=== PATIENT | male | born 1970 | race Caucasian/White ===

== ENCOUNTER 2019-11-03 11:33 | Outpatient (CLI) | payer MEDICAID, SELFPAY ==
--- NOTE | 2019-11-03 11:49 | CT_ITS ---
WS: [id number] CT ABDOMEN PELVIS TECHNIQUE: Contrast-enhanced CT of the abdomen and pelvis with coronal and sagittal reformatted image s. CLINICAL INFORMATION: LEFT GROIN PAIN COMPARISON: None. DLP: 994.[address] scans at [facility] use at least one of these dose optimization techniques: automat ed exposure control; mA and/or kV adjustment per patient size (includes targeted exams where dose is matched to clinical indication); or iterative reconstruction. FINDINGS: Liver is normal. Normal portal vein and splenic vein. Cholecystectomy clips. Adrenal glands are sarah l. Normal spleen. Normal gastroesophageal junction. Slight atelectasis or fibrosis in the lingula. Bi basilar atelectasis. Adrenal glands are normal. Normal renal parenchymal enhancement. Small left renal cyst measuring 16 m m. No hydronephrosis. Normal caliber abdominal aorta. Fat-containing umbilical hernia. No periaortic or inguinal lymphadenopathy. No inguinal hernia. Normal sigmoid colon. Scattered stool in the sigmoid colon. No evidence of high-grade small or large bowel obstruction. CT/CT abdomen pelvis w con* [id number] IMPRESSION: 1. Prior cholecystectomy. 2. Normal caliber abdominal aorta. 3. Tiny fat-containing umbilical hernia. No inguinal hernia. 4. Normal sigmoid colon. Mild fecal retention. 5. No hydronephrosis. 16 mm incidental left renal cyst. 6. No acute abdominal or pelvic findings.
[2019-11-03] MEDS: iohexol 300 mg/mL 50 mL Btl PO (13:08)
[2019-11-03] MEDS: iohexol 300 mg/mL 100 mL Btl IV (13:24)
== END 2019-11-03 11:34 | disposition home or self-care (01) ==
LOC: CT 11:36
PROVIDERS: Family Provider Nurse Practitioner Family; PCP Nurse Practitioner Family; Visit Provider Surgery
DX: N28.1 Cyst of kidney, acquired (principal); K42.9 Umbilical hernia without obstruction or gangrene; R10.30 Lower abdominal pain, unspecified; Z90.49 Acquired absence of other specified parts of digestive tract
CPT/HCPCS: 74177; Q9967

== ENCOUNTER → 2019-11-17 07:47 | Day surgery (SDC) | payer MEDICAID, SELFPAY ==
[2019-11-14 14:14] VITALS: BMI 22.6
[2019-11-17] MEDS: diphenhydrAMINE 50 mg Capsule PO (08:14)
[2019-11-17 08:15] VITALS: BP 105/80; PULSE 99; RESP 16; TEMP 36.9; O2SAT 96
[2019-11-17 08:26] LABS: Basophils # 0.1 10^3/uL (0.0-0.1); Basophils % 0.3 %; Eosinophils # 0.4 10^3/uL (0.0-0.8); Hematocrit 50.6 % (42.0-52.0); Hemoglobin 16.8 g/dL (11.7-16.6); Lymphocytes # 2.7 10^3/uL (0.8-4.8); Lymphocytes % 15.5 %; Mean Corpuscular HGB Conc 33.2 g/dL (30.0-36.0); Mean Corpuscular Hemoglobin 30.7 pg (28.0-34.0); Mean Corpuscular Volume 92.3 fL (80-94); Mean Platelet Volume 9.2 fL (7.4-10.4); Monocytes # 1.1 10^3/uL (0.2-0.9); Monocytes % 6.6 %; Neutrophils # 12.9 10^3/uL (1.8-7.7); Neutrophils % 75.2 %; Nucleated Red Blood Cells % 0 %; Platelet Count 309 10^3/cmm (130-400); Red Blood Count 5.48 10^6/uL (4.1-5.3); Red Cell Distribution Width 12.8 % (12.1-15.1); White Blood Count 17.1 10^3/uL (4.0-10.0)
--- NOTE | 2019-11-17 08:38 | XR_ITS ---
WS: [id number] PROCEDURE: XR chest 2V* [id number] CLINICAL INFORMATION: elevated wbc,chest congestion COMPARISON: None. FINDINGS: Cholecystectomy clips. Heart: Normal cardiac silhouette. Lungs: Lungs are clear. No consolidation or pleural fluid. Bones: Normal visualized bony structures. XR/XR chest 2V* [id number] IMPRESSION: Normal chest
[2019-11-17 08:42] LABS: INR 1.02 (0.8-1.2)
[2019-11-17 08:44] LABS: Anion Gap 17.1 (5-19); Blood Urea Nitrogen 8 mg/dL (6-20); Calcium 10.1 mg/dL (8.5-10.5); Carbon Dioxide 25 mmol/L (22-29); Chloride 102 mmol/L (98-107); Creatinine Clr Calc Pharmacy 74.0952; Glomerular Filtration Rate 80.1 mL/min (90-130); Glucose 93 mg/dL (65-115); Osmolality Calculated 286 mOsm/kg (285-295); Potassium 4.1 mmol/L (3.5-5.1); Sodium 140 mmol/L (136-145)
--- NOTE | 2019-11-17 09:30 | P.PN_ITS ---
Subjective Subjective: Interval history: This patient came to the [facility] as an outpatient today for a scheduled cardiac catheterization. Preoperative blood was drawn this morning. He was found to have a white cell count of 17.1 thousand. He has been having a chronic cough for some time. He is actively smoking. He thinks that the cough is related to the smoking. He has been not feeling well for the last couple of months. Exact reasons are not known. He has no nausea vomiting. No diarrhea. No fever or chills. He has no unusual shortness of breath. Medications: Reviewed: Yes Medication Review Details: Current Medications Sodium Chloride (Sodium Chloride 0.9%) 1,000 mls @ 50 mls/hr IV .Q20H ONE Stop: 11/18/19 03:59 Last Admin: 11/17/19 08:15 Dose: Not Given Documented by: Home Medications albuterol sulfate 90 mcg/actuation aerosol inhaler 2 puff INHALATION Q6H PRN 10/16/19 [History Confirmed 11/17/19] aspirin 81 mg tablet,delayed release 81 mg PO DAILY 10/16/19 [History Confirmed 11/17/19] budesonide-formoterol HFA 160 mcg-4.5 mcg/actuation aerosol inhaler 2 puff INHALATION BID 10/16/19 [History Confirmed 11/17/19] buspirone 10 mg tablet 10 mg PO BID 10/16/19 [History Confirmed 11/17/19] isosorbide mononitrate 30 mg tablet,extended release 24 hr 30 mg PO QAM 10/16/19 [History Confirmed 11/17/19] metoprolol succinate 25 mg capsule sprinkle, ext. release 24 hr 25 mg PO DAILY 10/16/19 [History Confirmed 11/17/19] nitroglycerin 0.4 mg sublingual tablet 0.4 mg SUBLINGUAL Q5M PRN 10/16/19 [History Confirmed 11/14/19] rosuvastatin 5 mg tablet 5 mg PO DAILY 10/16/19 [History Confirmed 11/17/19] vilazodone 20 mg tablet 20 mg PO DAILY 10/16/19 [History Confirmed 11/17/19] Active Medications Sodium Chloride (Sodium Chloride 0.9%) 1,000 mls @ 50 mls/hr IV .Q20H ONE Stop: 11/18/19 03:59 Last Admin: 11/17/19 08:15 Dose: Not Given Documented by: Vitals/I&O/Wt Last Vital Signs Temp 98.4 F 11/17/19 08:15 Pulse 99 11/17/19 08:15 Resp 16 11/17/19 08:15 BP 105/80 11/17/19 08:15 Pulse Ox 96 11/17/19 08:15 Physical Exam Narrative: EXAM NARRATIVE: GENERAL: The patient is alert and oriented times three. Not in any acute distress. HEENT: No significant pallor, icterus or lymphadenopathy.Oral cavity: There are no mucous membrane lesions. NECK: Trachea appears to be central. No masses noted. No JVD or thyromegaly appreciated. RESPIRATORY: Chest is symmetrical. No intercostals muscle retraction or any accessory muscle activation. There is no chest wall tenderness. Breath sounds are heard bilaterally. No rales or rhonchi heard. No evidence of any consolidation. BREASTS: Deferred. HEART: The heart sounds are normal. No S3 or S4. Murmurs. No pericardial rub ABDOMEN: Patient has some tenderness in the left iliac region. Also has some enlarged lymph nodes in this area. : Deferred. RECTAL: Deferred. LYMPHATIC: Slightly enlarged cervical lymph nodes on the right side was noted. Both groins also have enlarged nodes. They were found to be nontender. EXTREMITIES: No edema or cyanosis. No clubbing. Peripheral pulses are palpated in fairly good volume and amplitude MUSCULOSKELETAL: No acute joint deformities or swelling SKIN: There are no significant scars or skin rash noted. NEUROPSYCHIATRIC: The patient is alert and oriented x3. Appears to be in a good mood. No tremors or rigidity noted. Data : 11/17/19 08:00 11/17/19 08:00 CXR: My impression: Chest x-ray revealed normal cardiac silhouette with no acute lung infiltrate. No evidence of any consolidation or effusion. A&P Assessment and plan (1) Elevated white blood cell count: The exact reason for the leukocytosis is not clear at this time. This needs to be further evaluated. Currently has no identifiable source of infection. A chest x-ray was performed today. No acute infiltrate was noted. We also ordered a urine analysis and blood culture and the reports are pending. Status: Acute Qualifiers: Qualified Code(s): D72.829 - Elevated white blood cell count, unspecified Code(s): D72.829 - Elevated white blood cell count, unspecified (2) Atherosclerotic heart disease of [place] coronary artery with other forms of angina pectoris: Patient has increasing episodes of chest pain. Currently the symptoms are stable . The symptoms are somewhat atypical. He requires a cardiac authorization. But because of the elevated white cell count, we may hold off on the cardiac authorization for the time being. After finishing the work-up, we may proceed with the angiogram. So the cardiac catheterization today is postpo laura Status: Acute Code(s): I25.118 - Atherosclerotic heart disease of [place] coronary artery with other forms of angina pectoris (3) Mixed hyperlipidemia: Patient is advised to continue on the current medications. Status: Acute Code(s): E78.2 - Mixed hyperlipidemia (4) Benign essential hypertension with target blood pressure below 140/90: Since her blood pressure is in the normal range, may continue on the current medications. Status: Acute Code(s): I10 - Essential (primary) hypertension Additional A&P Information wE canceled the cardiac catheterization for today. I contacted Dr. Cespedes at the [facility] clinic and discussed the patient's situation. Dr. Cespedes is going to see the patient for further follow-up evaluation and management. In the meanwhile, he may continue on the current medications. Advised to contact our office, if there is any increase in chest pain or any new symptoms. Need to follow-up on the blood culture and the urine analysis Attestations Medical Necessity Statement*: Patient is being discharged from the outpatient department Coding Level of Care Code Acute [employer] for January Beckham Diagnoses Elevated white blood cell count D72.829 Atherosclerotic heart disease of [place] coronary artery with other forms of angina pectoris I25.118 Mixed hyperlipidemia E78.2 Benign essential hypertension with target blood pressure below 140/90 I10
--- NOTE | 2019-11-17 09:38 | PC.NURSE ---
LHC to be Rescheduled Dr Hernandez notified of pt WBC of 17 with c/o cough, congestion and TYLER over the past week patient states. Denies fever at home. CXR, blood cx, and UA ordered per Dr Hernandez at this time. States to discharge patient home today and to follow up with PCP today or tomorrow for elevated WBC and office will reschedule patient for LHC at a later date. and patient updated.
== END ==
PROVIDERS: Family Provider Nurse Practitioner Family; PCP Nurse Practitioner Family; Visit Provider Internal Medicine Cardiovascular Disease
DX: R07.89 Other chest pain (principal); I10 Essential (primary) hypertension; I25.10 Atherosclerotic heart disease of native coronary artery without angina pectoris; D72.829 Elevated white blood cell count, unspecified; I25.118 Atherosclerotic heart disease of native coronary artery with other forms of angina pectoris; E78.2 Mixed hyperlipidemia
CPT/HCPCS: 12345; 36415; 71046; 80048; 85025; 85610; 86850; 86900; 87040; J1644; J2001; J2250; J3010; J3490; J7030; Q0163

== ENCOUNTER → 2019-11-18 10:58 | Outpatient (BNVA) | payer MEDICAID, SELFPAY | PROVIDERS: Family Provider Nurse Practitioner Family; PCP Nurse Practitioner Family; Visit Provider Family Medicine | DX: D72.829 Elevated white blood cell count, unspecified (principal); J44.9 Chronic obstructive pulmonary disease, unspecified; R10.32 Left lower quadrant pain | CPT/HCPCS: 81003; 87086 ==

== ENCOUNTER → 2019-11-20 09:22 | Outpatient (BNVA) | payer MEDICAID, SELFPAY | PROVIDERS: Family Provider Nurse Practitioner Family; PCP Nurse Practitioner Family; Referring Provider Internal Medicine Cardiovascular Disease; Visit Provider Family Medicine | DX: D72.829 Elevated white blood cell count, unspecified (principal) | CPT/HCPCS: 85007; 85027 ==

== ENCOUNTER → 2019-11-24 11:23 | Outpatient (BNVA) | payer MEDICAID, SELFPAY | PROVIDERS: Family Provider Nurse Practitioner Family; PCP Nurse Practitioner Family; Visit Provider Family Medicine | DX: D72.829 Elevated white blood cell count, unspecified (principal) | CPT/HCPCS: 85025 ==

== ENCOUNTER → 2019-11-27 09:56 | Outpatient (BNVA) | payer MEDICAID, SELFPAY | PROVIDERS: Family Provider Nurse Practitioner Family; PCP Nurse Practitioner Family; Visit Provider Nurse Practitioner Family | DX: D72.829 Elevated white blood cell count, unspecified (principal); J44.9 Chronic obstructive pulmonary disease, unspecified | CPT/HCPCS: 80500; 85007; 85027; 85651; 86140 ==

== ENCOUNTER → 2019-12-23 14:00 | Outpatient (BNVA) | payer MEDICAID, SELFPAY | PROVIDERS: Family Provider Nurse Practitioner Family; PCP Nurse Practitioner Family; Visit Provider Family Medicine | DX: D72.829 Elevated white blood cell count, unspecified (principal) | CPT/HCPCS: 85007; 85025; 85027 ==

== ENCOUNTER 2020-01-05 09:56 | Outpatient (CLI) | payer MEDICAID, SELFPAY ==
[2020-01-05 12:32] LABS: Basophils # 0.1 10^3/uL (0.0-0.1); Basophils % 0.5 %; Eosinophils # 0.2 10^3/uL (0.0-0.8); Eosinophils % 1.5 %; Hematocrit 53.2 % (42.0-52.0); Hemoglobin 17.6 g/dL (11.7-16.6); Lymphocytes # 2.1 10^3/uL (0.8-4.8); Lymphocytes % 19.3 %; Mean Corpuscular HGB Conc 33.1 g/dL (30.0-36.0); Mean Corpuscular Hemoglobin 31.5 pg (28.0-34.0); Mean Corpuscular Volume 95.3 fL (80-94); Mean Platelet Volume 9.3 fL (7.4-10.4); Monocytes # 0.7 10^3/uL (0.2-0.9); Monocytes % 6.4 %; Neutrophils # 7.9 10^3/uL (1.8-7.7); Neutrophils % 71.9 %; Nucleated Red Blood Cells % 0 %; Platelet Count 256 10^3/cmm (130-400); Red Blood Count 5.58 10^6/uL (4.1-5.3); Red Cell Distribution Width 12.3 % (12.1-15.1)
[2020-01-05 12:57] LABS: Alanine Aminotransferase 12 U/L (0-41); Albumin Level 4.8 g/dL (3.5-5.2); Alkaline Phosphatase 65 IU/L (40-130); Anion Gap 17.2 (5-19); Aspartate Amino Transferase 19 U/L (0-40); Blood Urea Nitrogen 9 mg/dL (6-20); Calcium 9.9 mg/dL (8.5-10.5); Carbon Dioxide 27 mmol/L (22-29); Chloride 100 mmol/L (98-107); Globulin 2.5 g/dL (1.3-4.6); Glomerular Filtration Rate 64.9 mL/min (90-130); Glucose 88 mg/dL (65-115); Lactate Dehydrogenase 184 U/L (135-225); Osmolality Calculated 285 mOsm/kg (285-295); Potassium 4.2 mmol/L (3.5-5.1); Sodium 140 mmol/L (136-145); Total Bilirubin 0.4 mg/dL (0.15-1.2); Total Protein 7.3 g/dL (6.6-8.7)
[2020-01-05 13:43] LABS: LAB Peripheral Smear Sent for Review
[2020-01-05 14:12] LABS: Erythrocyte Sedimentation Rate 5 mm/hr (0-10)
--- NOTE | 2020-01-05 16:09 | ONC CON_ITS ---
Dr. Fernandez New Patient Note Patient: Edgar Enriquez Unit #: [id number]: 1970 Dicatated By: Donnie Fernandez M.D.Date of Visit: Jan 05, 2020 Onc MED New Patient/Consult Referring Physician: Dr. Sharon Cespedes M.D. Chief Complaint: Elevated white blood cell count. History of Present Illness: This is a 49 year-old man with leukocytosis and elevated hemoglobin/hematocrit levels. This patient has multiple medical illnesses including hypertension, hyperlipidemia, coronary artery disease, asthma/COPD, and PTSD with anxiety/depression. He had suffered a myocardial infarction in 2012. At that time he underwent coronary angioplasty/stent placement, and he also reportedly suffered a stroke. He has a history of hepatitis C. On 10/27/2019 he had outpatient visit with Dr. Hernandez because of increasing episodes of chest pain. A recent myocardial perfusion imaging was reported to have been unremarkable. They scheduled a repeat coronary angiogram on 11/17/2019, but the procedure was abandoned when his preop CBC showed an elevated white blood cell count at 17,100. The differential showed 75% neutrophils, 15% lymphocytes, 6% monocytes, and 2% eosinophils. The remainder of the CBC included a mildly elevated hemoglobin at 17.8 g with hematocrit 50.6%. The red cell indices were normal. The platelet count was normal at 309,000. Chest x-ray at that time was normal. During subsequent follow-up he had multiple repeat blood counts which showed varying degrees of leukocytosis, but all with mildly elevated hemoglobin/hematocrit levels and normal platelet counts. His most recent CBC, from 12/23/2019, showed hemoglobin 17.1 g, white blood cell count 13,200, and platelet count 350,000. He indicates that his energy is not very good. It has been down for at least the past few months. He is able to do some light work. His ECOG score is 1. Appetite is variable. He says his weight fluctuates. He is currently down at least 13 pounds from normal. A couple of weeks ago he had a slight fever, in the range of 100 degrees. He has episodes of sweating both during the daytime and at night. He has shortness of breath with activity. He has a regular cough. He sometimes brings up mucus with it. He has some dull chest pain which is usually associated with activity. He does not complain of nausea. He has been having a lot of heartburn. He has loose stools every morning, but that has been going on for years. He has not been aware of any blood in the stool. He has no complaints. He says he is generally sore. He has aches and pains all through his body. He says he has headache all the time and that has been going on for several years. He has some orthostatic dizziness and lightheadedness. He has numbness and tingling in his hands, which comes and goes. He has posttraumatic stress disorder, and he has associated anxiety and depression. Past Medical History: His medical history includes anxiety/depression, asthma, chronic obstructive pulmonary disease, coronary artery disease, hepatitis C, history of myocardial infarction and stroke, hyperlipidemia, hypertension, and posttraumatic stress disorder. Past Surgical History: His surgical/procedural history consists of cholecystectomy in 2012, coronary angioplasty/stent placement in 2012, and left femoral hernia repair in 2013. Medications: Albuterol Sulfate 1 (108 (90 base) mcg/act) Aerosol Powder, Breath Activated Inhalation PRN, Aspirin 1 Tablet (of 81 mg) Tablet, chewable Oral daily, busPIRone HCl 1 Tablet (of 10 mg) Oral daily, Crestor 1 Tablet (of 5 mg) Oral daily, Isosorbide Mononitrate ER 1 Tablet (of 30 mg) Tablet SR 24 HR Oral daily, Metoprolol Succinate ER 1 Tablet (of 25 mg) Tablet SR 24 HR Oral daily, Nitroglycerin 1 Tablet (of 0.4 mg) Tablet, sublingual Sublingual PRN, Symbicort 1 (160-4.5 mcg/act) Aerosol Inhalation daily, Viibryd 1 Tablet (of 40 mg) Oral daily Allergies: Penicillins Social History: Mr. Enriquez is and he is disabled. He has history of smoking 2 packs of cigarettes daily for at least 25 years. He has a history of heavy alcohol use for somewhere in the range of 20 to 25 years. He quit drinking in 2016. Family History: Father still living at age 82. Mother with COPD at age 76. One brother has diabetes and 2 brothers have heart disease. Review Of Symptoms: Constitutional - His energy level is low. He has a decrease in energy over the past 2 weeks. He does some light outside work. His appetite is okay. His weight is down for his normal. He had fevers approximately 2 months ago. No chills. He has day and night sweats for 3-4 years. ECOG score is 1, Eyes - Vision has been blurry, ENMT - He has hearing loss. No tinnitus. He has chronic sinus congestion/drainage. No mouth sores. No sore throat or difficulty swallowing, Hematologic/Lymphatic - No abnormal bruising or bleeding, Respiratory - He has shortness of breath with activity. He has a cough that is occasionally productive. No pleuritic pain or hemoptysis, Cardiovascular - He has intermittent dull chest pain with activity. No palpitations, Gastrointestinal - No nausea or vomiting. He has frequent heartburn. He has had loose stools for years. No constipation. No blood in the stool or black stools, Genitourinary (M) - No dysuria or hematuria. No urinary frequency. No urgency or incontinence, Musculoskeletal - He complains that he is sore and that he has aches and pains all through his body, Integumentary - No skin complications, Neurologic - He has being having headaches daily for 2-3 years. He has dizziness/lightheadedness with positional changes. He has numbness and tingling to his feet and ankles, Psychiatric - He has PTSD. He takes Buspar for anxiety. He does not sleep well at night. Vital Signs: Performed on Jan 05, 2020 10:54: 4, 31.84 (HIGH), 1.41 sq.m, 53.00 in, 98 %, 75 /min, 20 /min, 112/73 mm(hg), 98.3 F (LOW), and 127.2 lbs (HIGH). Physical Examination: Constitutional - He does not appear acutely ill, Eyes - Sclerae nonicteric. Conjunctivae clear, ENMT - No lesions noted in the oral cavity, Neck - No mass or thyromegaly, Hematologic/Lymphatic - No cervical, clavicular, or axillary adenopathy, Respiratory - Lungs are clear with diminished air movement bilaterally, Cardiovascular - Heart rhythm is regular. There is no murmur, gallop, or rub noted, Abdomen - Soft and non-tender. Liver and spleen are not enlarged. There is no abdominal mass or ascites noted and there is no inguinal adenopathy, Back/Spine - There is mild tenderness in the lower thoracic/upper lumbar spine area, Extremities - No edema. Pedal pulses are palpable bilaterally, Integumentary - No rashes. No suspicious skin lesions noted, Neurologic - No focal neurologic deficits noted. Impression: 1. Patient with leukocytosis of varying degrees in association with mildly elevated hemoglobin/hematocrit levels. I think this is most likely reactive leukocytosis and unrelated secondary polycythemia. At this point I certainly cannot exclude the possibility of a myeloproliferative disorder. 2. He has multiple additional complaints including fatigue, weight loss, and generalized pain. His other medical illnesses include: 3. Hypertension. 4. Hyperlipidemia. 5. Coronary artery disease with previous myocardial infarction and angioplasty/stent placement. 6. History of stroke in association with the above. 7. Asthma/COPD. 8. History of hepatitis C. 9. Posttraumatic stress disorder. 10. Anxiety/depression. Plan: The laboratory findings and clinical implications were reviewed with the patient. As noted, I think this is most likely reactive leukocytosis, though I do not see any obvious underlying cause for it. He likely has secondary polycythemia, but a myeloproliferative disorder does need to be excluded. He will have additional laboratory studies today to include CBC, comprehensive metabolic profile, sed rate, LDH level, erythropoietin level, JAK2 gene mutation study, and a FISH study for BCR/abl. I will review the blood smear. He will have further evaluation as indicated. Signed By: Donnie Fernandez M.D. <<Signature on File>>
[2020-01-06 14:05] LABS: Erythropoietin 6.4 mIU/mL (2.6-18.5)
[2020-01-08 22:36] LABS: CALR Exon 9 Mutation NOT DETECTED (NOT DETECTED); CSF3R Exon 14/17 Mutation NOT DETECTED (NOT DETECTED); JAK2 Exon 12 Mutation NOT DETECTED (NOT DETECTED); JAK2 V617 Block Specimen ID NG; JAK2 V617 Clinical Indication NG; JAK2 V617 Mutation NOT DETECTED (NOT DETECTED); JAK2 V617 Specimen Source NG; MPL Exon 12 Mutation NOT DETECTED (NOT DETECTED)
[2020-01-11 16:47] LABS: P190 BCR ALB1 Not Detected; P210 BCR ALB1 Not Detected; Prior Results Not Given
== END 2020-01-05 09:57 | disposition home or self-care (01) ==
LOC: ONCMED 09:58
PROVIDERS: Internal Medicine Medical Oncology; Family Provider Nurse Practitioner Family; PCP Family Medicine; Referring Provider Family Medicine; Visit Provider Internal Medicine Hematology & Oncology
DX: D72.829 Elevated white blood cell count, unspecified (principal); R79.89 Other specified abnormal findings of blood chemistry; I10 Essential (primary) hypertension; E78.5 Hyperlipidemia, unspecified; I25.10 Atherosclerotic heart disease of native coronary artery without angina pectoris; I25.2 Old myocardial infarction; J44.9 Chronic obstructive pulmonary disease, unspecified; F43.10 Post-traumatic stress disorder, unspecified; F41.8 Other specified anxiety disorders; F10.21 Alcohol dependence, in remission; F17.210 Nicotine dependence, cigarettes, uncomplicated; Z79.51 Long term (current) use of inhaled steroids; Z79.82 Long term (current) use of aspirin; Z95.5 Presence of coronary angioplasty implant and graft; Z95.1 Presence of aortocoronary bypass graft; Z86.19 Personal history of other infectious and parasitic diseases
CPT/HCPCS: 36415; 80053; 81206; 82668; 83615; 85025; 85651; 99204

== ENCOUNTER 2020-01-07 11:37 | Outpatient (CLI) | payer MEDICAID, SELFPAY ==
[2020-01-07 11:57] LABS: Basophils # 0.1 10^3/uL (0.0-0.1); Basophils % 0.5 %; Eosinophils # 0.2 10^3/uL (0.0-0.8); Hematocrit 54.7 % (42.0-52.0); Lymphocytes # 2.8 10^3/uL (0.8-4.8); Lymphocytes % 24.9 %; Mean Corpuscular HGB Conc 32.9 g/dL (30.0-36.0); Mean Corpuscular Hemoglobin 31.4 pg (28.0-34.0); Mean Corpuscular Volume 95.3 fL (80-94); Mean Platelet Volume 9.8 fL (7.4-10.4); Monocytes # 0.9 10^3/uL (0.2-0.9); Neutrophils # 7.1 10^3/uL (1.8-7.7); Neutrophils % 64.3 %; Nucleated Red Blood Cells % 0 %; Platelet Count 279 10^3/cmm (130-400); Red Blood Count 5.74 10^6/uL (4.1-5.3); Red Cell Distribution Width 12.2 % (12.1-15.1); White Blood Count 11.1 10^3/uL (4.0-10.0)
[2020-01-07 12:15] LABS: LAB Peripheral Smear Sent for Review
== END 2020-01-07 11:38 | disposition home or self-care (01) ==
LOC: ONCMED 11:38
PROVIDERS: Family Provider Nurse Practitioner Family; PCP Family Medicine; Visit Provider Internal Medicine Medical Oncology
DX: D72.829 Elevated white blood cell count, unspecified (principal); D75.1 Secondary polycythemia; M25.50 Pain in unspecified joint
CPT/HCPCS: 80500; 85025

== ENCOUNTER → 2020-04-07 11:13 | Outpatient (BNVA) | payer MEDICAID, SELFPAY | PROVIDERS: Absent Provider Family Medicine; Family Provider Nurse Practitioner Family; PCP Family Medicine; Visit Provider Family Medicine | DX: D72.829 Elevated white blood cell count, unspecified (principal); M12.9 Arthropathy, unspecified; J41.0 Simple chronic bronchitis; I25.118 Atherosclerotic heart disease of native coronary artery with other forms of angina pectoris | CPT/HCPCS: 85025 ==

== ENCOUNTER 2020-04-19 13:43 | Outpatient (CLI) | payer MEDICAID, SELFPAY ==
--- NOTE | 2020-04-23 14:17 | ONC FU_ITS ---
Dr. Fernandez Patient Follow-Up Note Patient: Edgar Enriquez Unit #: [id number]: 1970 Dicatated By: Donnie Fernandez M.D.Date of Visit:Apr 19, 2020 Onc Med Follow-up/Prog Note Chief Complaint: Elevated white blood cell count. History of Present Illness: This is a 49 year-old man with leukocytosis and elevated hemoglobin/hematocrit levels. He has multiple medical illnesses including hypertension, hyperlipidemia, coronary artery disease, asthma/COPD, and PTSD with anxiety/depression. He had suffered a myocardial infarction in 2012. At that time he underwent coronary angioplasty/stent placement, and he also reportedly suffered a stroke. He has a history of hepatitis C. On 10/27/2019 he had outpatient visit with Dr. Hernandez because of increasing episodes of chest pain. A recent myocardial perfusion imaging was reported to have been unremarkable. They scheduled a repeat coronary angiogram on 11/17/2019, but the procedure was abandoned when his preop CBC showed an elevated white blood cell count at 17,100. The differential showed 75% neutrophils, 15% lymphocytes, 6% monocytes, and 2% eosinophils. The remainder of the CBC included a mildly elevated hemoglobin at 17.8 g with hematocrit 50.6%. The red cell indices were normal. The platelet count was normal at 309,000. Chest x-ray at that time was normal. During subsequent follow-up he had multiple repeat blood counts which showed varying degrees of leukocytosis, but all with mildly elevated hemoglobin/hematocrit levels and normal platelet counts. His CBC 12/23/2019 showed hemoglobin 17.1 g, white blood cell count 13,200, and platelet count 350,000. I had seen him initially on 01/05/2020. His CBC showed similar findings with hemoglobin 17.6 g and hematocrit 53.2%. The white blood cell count was 11,000 and the platelet count was 256,000. Sed rate was normal at 5 mm/hour. His molecular analysis, including his Yazan 2 gene mutation analysis, was completely unrevealing. His erythropoietin level was in the low normal range at 6.4 mIU/mL. He is seen for a follow-up visit. He continues to have multiple complaints. He says that he has no energy and that he has been sleeping a lot. He has very limited activity. ECOG score is 2. Appetite is variable. His weight recently has been stable, but he says that he is down 13 pounds from normal. He does not have fever. He does report having some sweating at night. He feels generally sore and achy. He says his breathing is fair. He does use an inhaler. He has a smoker's cough. He has throbbing, aching pain or sometimes sharp pain in his upper chest periodically. It is sometimes associated with numbness in his left hand. He reports having diarrhea a lot. He has headaches, and he complains of being off balanced. He complains that he bleeds very easily. He also has anxiety. Medications: Albuterol Sulfate 1 (108 (90 base) mcg/act) Aerosol Powder, Breath Activated Inhalation PRN, Aspirin 1 Tablet (of 81 mg) Tablet, chewable Oral daily, busPIRone HCl 1 Tablet (of 30 mg) Oral daily, Crestor 1 Tablet (of 5 mg) Oral daily, Isosorbide Mononitrate ER 1 Tablet (of 30 mg) Tablet SR 24 HR Oral daily, Metoprolol Succinate ER 1 Tablet (of 25 mg) Tablet SR 24 HR Oral daily, Nitroglycerin 1 Tablet (of 0.4 mg) Tablet, sublingual Sublingual PRN, Symbicort 1 (160-4.5 mcg/act) Aerosol Inhalation daily, Viibryd 1 Tablet (of 40 mg) Oral daily Allergies: Penicillins Review of Systems: Constitutional - He complains that he has no energy. His activity is very limited. He has no appetite. His weight recenty has been stable, but he is down 13 lbs from normal. He has not had fever. He does have night sweating. ECOG score is 2, Eyes - He is legally blind in the left eye, ENMT - He has a runny nose. No mouth sores. No sore throat or difficulty swallowing, Hematologic/Lymphatic - No abnormal bruising, but he bleeds very easily, Respiratory - His breathing is fair. He has a smoker's cough. No pleuritic pain or hemoptysis, Cardiovascular - He has throbbing, aching pain or sometimes sharp pain in his upper chest periodically. It is sometimes associated with numbness in his left hand. No palpitations, Gastrointestinal - No nausea or vomiting. No heartburn or acid reflux. He has diarrhea a lot. No blood in the stool or black stools, Genitourinary (M) - No dysuria or hematuria. No urinary frequency. No urgency or incontinence, Musculoskeletal - He is generally sore and achy, Integumentary - No skin rash, Neurologic - He has headaches and his balance is off. He has numbness in his left hand, as described. No other focal neurologic symptoms, Psychiatric - He has anxiety. He does not sleep well at night, but he is sleeping a lot during the daytime. Vital Signs: Performed on Apr 19, 2020 14:01 Height - 53.00 in Weight - 127.8 lbs (HIGH) BSA - 1.41 sq.m BMI - 31.99 (HIGH) Temperature - 98.7 F Pulse - 73 /min Respiration - 22 /min BP - 121/83 mm(hg) O2 Sat - 99 % Pain - 4 Physical Examination: Constitutional - He does not appear acutely ill, Eyes - Sclerae nonicteric. Conjunctivae clear, ENMT - No lesions noted in the oral cavity, Hematologic/Lymphatic - No cervical, clavicular, or axillary adenopathy, Respiratory - Lungs show diminished air movement with slightly coarse breath sounds bilaterally, Cardiovascular - Heart rhythm is regular. There is no murmur, gallop, or rub noted, Abdomen - Soft. Liver and spleen are not enlarged. There is no abdominal mass or ascites noted and there is no inguinal adenopathy, Extremities - No edema, Integumentary - There is a movable, 2 cm subcutaneous nodule in the upper left arm, Neurologic - No focal neurologic deficits noted. Lab/Imaging: CBC shows hemoglobin 15.8 g with hematocrit 49%. The white blood cell count is 11,600 and the platelet count is 263,000. Impression: 1. Patient with leukocytosis of varying degrees in association with mildly elevated hemoglobin/hematocrit levels. I think this is most likely reactive leukocytosis and unrelated secondary polycythemia. At this point I certainly cannot exclude the possibility of a myeloproliferative disorder. 2. He has multiple additional complaints including fatigue, weight loss, and generalized pain. His other medical illnesses include: 3. Hypertension. 4. Hyperlipidemia. 5. Coronary artery disease with previous myocardial infarction and angioplasty/stent placement. 6. History of stroke in association with the above. 7. Asthma/COPD. 8. History of hepatitis C. 9. Posttraumatic stress disorder. 10. Anxiety/depression. His evaluation in December 2019 was consistent with secondary polycythemia, as his erythropoietin level was in the low normal range and his molecular analysis was completely unrevealing. He also has mild leukocytosis, which is presumed to be reactive. He continues to have multiple complaints, but his hemoglobin/hematocrit levels are now just borderline high. Plan: He can be followed on observation/expectant management. At least for now he will just continue his regular follow-up with Dr. Cespedes. I can see him again if there is a significant increase in his blood counts. In the meantime, he will be given a prescription for cholestyramine for the diarrhea. He will follow-up with Dr. Hernandez for his angiogram. Signed By: Donnie Fernandez M.D. <<Signature on File>>
== END 2020-04-19 13:44 | disposition home or self-care (01) ==
LOC: ONCMED 13:48
PROVIDERS: PCP Family Medicine; Visit Provider Internal Medicine Medical Oncology
DX: D72.829 Elevated white blood cell count, unspecified (principal); R79.89 Other specified abnormal findings of blood chemistry; R19.7 Diarrhea, unspecified; R53.83 Other fatigue; R63.4 Abnormal weight loss; I10 Essential (primary) hypertension; E78.5 Hyperlipidemia, unspecified; I25.10 Atherosclerotic heart disease of native coronary artery without angina pectoris; I25.2 Old myocardial infarction; J44.9 Chronic obstructive pulmonary disease, unspecified; F43.10 Post-traumatic stress disorder, unspecified; F41.8 Other specified anxiety disorders; Z86.73 Personal history of transient ischemic attack (TIA), and cerebral infarction without residual deficits; Z95.5 Presence of coronary angioplasty implant and graft; Z95.1 Presence of aortocoronary bypass graft; Z86.19 Personal history of other infectious and parasitic diseases; Z68.31 Body mass index [BMI] 31.0-31.9, adult
CPT/HCPCS: 99214

== ENCOUNTER → 2020-05-05 12:54 | Outpatient (BNVA) | payer MEDICAID, SELFPAY | PROVIDERS: PCP Family Medicine; Referring Provider Internal Medicine Cardiovascular Disease; Visit Provider Internal Medicine Cardiovascular Disease | DX: Z03.818 Encounter for observation for suspected exposure to other biological agents ruled out (principal) | CPT/HCPCS: 36415; 80048; 83880; 85025; 87635 ==

== ENCOUNTER 2020-05-10 07:51 | Observation (INO) | payer MEDICAID, SELFPAY ==
[2020-05-10] VITALS (12 sets, daily range): BP systolic 98–109; BP diastolic 66–78; PULSE 69–80; RESP 16–17; TEMP 36.7; O2SAT 91–97; BMI 23.0
--- NOTE | 2020-05-10 06:00 | XACV_ITS ---
Ht: 160 cm Wt: 59 kg BSA: 1.63 m2 Gender: Male : 1970 Any Known Allergies: Penicillins Exam Priority: Routine Procedure(s): Procedure Description: Diagnostic procedure Procedure Description: Left Heart Catheterization Diagnostic Cath Status: Elective Diagnostic Findings No significant disease noted in the Left Main, LAD, Circumflex, or RCA coronary arteries. Coronary angiography shows right dominance. Left main is extremely short vessel which bifurcates to the left anterior descending artery and circumflex artery. The left anterior descending artery is a medium caliber vessel which appears to wrap around the LV apex minimally. The LAD trifurcates to a large diagonal, septal barker peeler and the LAD proper proximally. The septal barker peeler was found to have diffuse stenosis of 50 to 70% in the midsegment. The distal vessel is relatively of small caliber. The left circumflex artery is a medium caliber nondominant vessel with no significant stenotic lesions. The right coronary artery is a medium caliber dominant vessel with no significant stenotic lesions. Conclusions This 50-year-old white male with a history of coronary artery disease and previous PCI? Presented with increasing episodes of chest pain. He had a small area of decreased tracer uptake in the apical anterior, apical inferior and LV apex with a subtle area of reversibility in the apical segment. Initially it was decided to treat him medically. Because of his ongoing worsening chest pain symptoms, for further evaluation of his coronary status, a cardiac catheterization was recommended. Patient underwent left heart catheterization with a left and right coronary angiogram and LV angiogram today. The findings are as follows. Moderately severe diffuse disease in the large septal barker peeler of the left anterior descending artery. No other significant stenotic lesions were noted. Normal LV ejection fraction of 55%. Elevated LVEDP of 21 mmHg. Discussed and reviewed the cardiac catheterization data with Dr. Castellon. Based on the above angiographic findings, it was opted to treat this patient medically. Recommendations Continue current medical management and risk factor modification. Diagnostic RX Recommendation: medical therapy and/or counseling LV EDP: 21 mmHg Ventriculography Ejection Fraction: 55.0 % Pressures Phase:Rest AO : 78 mmHg / 57 mmHg ( 68 mmHg ) @ 2:23:00 AM 97 mmHg / 60 mmHg ( 76 mmHg ) @ 2:31:00 AM 99 mmHg / 61 mmHg ( 78 mmHg ) @ 2:31:00 AM LV : 108 mmHg / 2 mmHg / @ 2:30:00 AM 108 mmHg / 2 mmHg / @ 2:30:00 AM 109 mmHg / 1 mmHg / @ 2:30:00 AM 110 mmHg / 1 mmHg / @ 2:31:00 AM Valves Phase:DefaultPhase AV : 11.0 mmHg @ 7:45:55 AM AV Mean Gradient: 8.0 mmHg @ 7:45:55 AM Clinical Evaluation EBL: 5mL-10mL Procedural Details Procedure Consent Obtained. Admit Source: Out Patient. Pre-Procedure Time Out. Identified patient by full name and date of as verbalized by the patient/guarantor. Does the consent match the physician's order: Yes. Accurate & Complete Informed Consent: Yes. Inpatient/Outpatient History & Physical on Chart: Yes. If H&P is completed, is and addenduem needed: No; If yes, is the addendum complete: N/A. Visualize and Verify Site with Patient/Guarantor: N/A. Relevant Radiology Images available: N/A. Pre-op teaching completed and patient verbalized understanding. The risks, benefits, and alternatives of sedation and/or procedure were discussed by physician. The patient agrees to continue. Procedure started. Correct patient, site and procedure confirmed by cath team. PERRLA. Strong, equal hand mussel opener bilaterally. Lungs clear x 5 lobes. IV Site on Arrival: 20 gauge in the left anticubital. Pre Procedural Pulses: bilateral dorsalis pedis was 1+. Pre Procedural Pulses: bilateral posterior tibial was 1+. Pre Procedural Pulses: bilateral radial was 3+. Oxygen started at 2liters/min via nasal canula. bilateral groins was prepped with chloroprep then draped in the usual sterile fashion. right radial was prepped with chloroprep then draped in the usual sterile fashion. Physician notified. Baseline sample Acquired. HR: 65 BPM. Physician arrived. Physician scrubbed in. Immediate Pre-Procedure Time Out. Correct Patient: Yes; Correct Procedure: Yes; Correct Site: Yes; Correct Patient Position: Yes; Correct Supplies: Yes; Dried Flammable Prep: Yes; Blood Products Available: N/A;. family notified. Lidocaine 1% infiltrated to the right radial. Arterial access obtained. A 5 honduran Krishna catheter in over wire. Multiple views taken of left coronary artery. Catheter redirected to the RCA. Multiple views taken of right coronary artery. Catheter out. A 5 honduran Angled Pig catheter in over wire. EDP Sample taken: LV 108/2,20; HR: 74 BPM; SpO2: 97%. LV gram performed in KNAPP @ 10 mL/second for a total of 30 mL. EDP Sample taken: LV 109/1,20; HR: 78 BPM; SpO2: 96%. Pullback taken: LV 110/1,21; AO 97/60(76); Mean: 8mmHg, Peak to Peak: 11mmHg, SEP: 22sec/min; HR: 78 BPM; SpO2: 95%. Catheter out. TR band placed. Hemostasis obtained. Post Procedure: Pulses reassessed and unchanged. PERRLA. Strong, equal hand mussel opener bilaterally. No VTE prophylaxis required. Total IV fluids: 60.7 mL. Medication's Wasted: Lidocaine 1% = 18 mL. Medication's Wasted: Heparin = 1000 units. Contrast type used: Omnipaque 300 mgI/mL, 500 mL bottle. Contrast Material : Omnipaque 118 ml. Medication's Wasted: Nitro = 49.8 mg. A TR Band was successful obtaining hemostatsis at the Right Radial artery insertion site. Vital chart was stopped. [facility] Clinical Fraility Score: 3: Managing Well. Pusher Runner Indications: Worsening Angina. Chest Pain Symptom Assessment: Atypical Angina. Cardiovascular Instability: No. Post-op diagnosis: CAD. Complications: none. Estimated blood loss: 5mL-10mL. Procedure completed. Patient transferred by wheelchair to 1st floor. Site: Right Radial artery Sheath Size: 6 Fr Hemostasis Method: TR Band Hemostasis Success: Successful Procedure Medications Start: 7:18 AM Stop: 7:18 AM Medication: Versed Amount: 1 mg Route: I.V. Start: 7:18 AM Stop: 7:18 AM Medication: Fentanyl Amount: 50 mcg Route: I.V. Start: 7:19 AM Stop: 7:19 AM Medication: Versed Amount: 1 mg Route: I.V. Start: 7:19 AM Stop: 7:19 AM Medication: Fentanyl Amount: 50 mcg Route: I.V. Start: 7:20 AM Stop: 7:20 AM Medication: Verapamil Amount: 5 mg Route: I.A. Start: 7:20 AM Stop: 7:20 AM Medication: Nitrogylcerin Amount: 200 mcg Route: I.A. Start: 7:23 AM Stop: 7:23 AM Medication: 0.9% Saline Amount: 250 ml Route: I.V. bolus Start: 7:24 AM Stop: 7:24 AM Medication: Heparin Amount: 5000 units Route: I.V. I, the attending physician, have reviewed and verified all procedure medications. Yes, all medications given per verbal order History/Risk Factors Hypertension: Yes Dyslipidemia: Yes Peripheral Arterial Disease (PAD): No Myocardial Infarction (ME): Yes Obesity: No Renal Disease: No Tobacco Use: Current/Recent(w/in 1 year) Prior Interventions PCI: Yes CABG: No Valve Surgery: No Report Signatures Finalized by:Dr Margie Hernandez MD [facility] on 05/10/2020 8:01:26 AM
[2020-05-10] MEDS: diphenhydrAMINE 50 mg Capsule PO (06:51)
--- NOTE | 2020-05-10 07:02 | W.PM.OPSUD ---
Surgery/Procedure H&P Update DATE OF PROCEDURE: May 10, 2020 DATE H&P PERFORMED: 04/12/20 H&P UPDATE INFORMATION: I have reviewed H&P completed within last 30 days, I have examined patient prior to procedure and No changes to prior documentation PREOP DIAGNOSIS: ASHD PLANNED PROCEDURE: Operation Date: 05/10/20 07:00 Proposed Procedures p Cardiac Catheterization left(Left) - Margie Hernandez MD PATIENT REASSESSED PRIOR TO SEDATION, WITH NO CHANGE NOTED: Yes PHYSICAL EXAM: alert, oriented x 3, clear to auscultation bilaterally and regular rate & rhythm AIRWAY EVAL/ANESTHESIA PLAN: normal airway, see other exam findings, ASA III, Local Anesthesia, Risks, benefits & alternatives of sedation and/or procedure discussed and Patient agrees to continue as planned
--- NOTE | 2020-05-10 08:11 | PC.NURSE ---
PATIENTS BLOOD PRESSURE NOTED TO BE LOW IN BOTH [employer] AND ON THE FLOOR. 90'S/60'S. DR. HENRY NOTIFIED AND ORDERED TO HOLD MORNING DOSE OF METOPROLOL.
[2020-05-10] MEDS: meloxicam 7.5 mg tablet 15 MG PO (08:22)
[2020-05-10] MEDS: atorvastatin 40 mg Tablet 20 MG PO (08:22)
[2020-05-10] MEDS: albuterol 8 gm MDI 2 PUFF INHALATION (09:28)
--- NOTE | 2020-05-10 10:20 | PC.CHAP ---
Pastoral Care Encounter/Spiritual Assessment Type of Contact [] Declined glaze wiper visit [] Patient/Family/Request visit [] Outpatient visit [] Follow-up visit [] Physician referral [] Code/Alert [x Routine visit [] Staff referral [] Actively dying [] Patient sleeping [] Family support [] [] Out of room [] Palliative care [] [] Receiving care in room [] Pre-surgical visit [] Trauma [] Long length of stay [] ICU visit [] Other: Relational/Emotional Strength [] Patient feels connected with others/family/visitors/staff [] Distress [] Loneliness/isolation [] Abandonment Spirituality of Patient [] Person of Melida [] Attends Oriental Orthodox of their Melida [] Believes in Prayer [] Reads Bible or Mandaeism materials [] There are Spiritual issues to be addressed Housekeeper And Laundry Assistant Interventions [x] Prayer [x] Active listening [x] Non-anxious presence [x] Spiritual/emotional support [] Crisis/trauma care [] Spiritual counseling [] Bereavement support [] Provided bereavement packet [] Provided Bible/devotional materials [] Provided toy/stuffed animal, coloring book to patient or family member [] Provided Communion [] Anointing/[place] [] Salvation [x] Completed spiritual assessment [] Other: Impact on Illness or Injury [] Angry [] Fearful [] Anxious [] Often cries [] Exhaustion [] Unable to work [] Unable to attend congregation [] Unable to walk/stand [] Unable to read [] Unable to drive [] Unable to eat/drink [] Unable to sleep [] Unable to be with family [] Patient intubated [] Other: Summary Patient just arrived in room. Resting well Time spent with patient 5 min
--- NOTE | 2020-05-10 10:48 | PC.RESP ---
Smoking Cessation and Pulmonary Rehab information sent to patient.
== END 2020-05-10 11:45 | disposition home or self-care (01) ==
LOC: CSU 08:30
PROVIDERS: Admitting Provider Internal Medicine Cardiovascular Disease; PCP Family Medicine; Visit Provider Internal Medicine Cardiovascular Disease
DX: I25.10 Atherosclerotic heart disease of native coronary artery without angina pectoris (principal); I25.2 Old myocardial infarction; I10 Essential (primary) hypertension; J44.9 Chronic obstructive pulmonary disease, unspecified; E78.2 Mixed hyperlipidemia; Z79.82 Long term (current) use of aspirin; F17.210 Nicotine dependence, cigarettes, uncomplicated; Z95.5 Presence of coronary angioplasty implant and graft
CPT/HCPCS: 12345; 36415; 93452; 94640; C1769; C1887; C1894; G0378; J1644; J2250; J3010; J3490; J3535; J7030; Q0163; Q9967

== ENCOUNTER 2020-05-10 17:21 | Emergency (ER) | payer MEDICAID, SELFPAY ==
[2020-05-10 17:22] VITALS: BMI 23.0
[2020-05-10 17:24] VITALS: BP 119/78; PULSE 72; RESP 18; TEMP 36.9; O2SAT 93
--- NOTE | 2020-05-10 17:35 | ED_ITS ---
HPI - General Adult General: Chief complaint: General Medical Stated complaint: BLEEDING FROM ANGIOGRAM SITE Time Seen by Provider: 05/10/20 17:30 History of Present Illness: HPI narrative: Patient is a 42-year-old male comes to the ED with bleeding from angiogram site. Patient had angiogram this morning and he says when he woke up from his nap he was having some bleeding from the site. Bleeding was controlled before arriving to the ED. Complaining of some mild right arm swelling. Denies any other symptoms. Associated symptoms: Deny chest pain, dyspnea, headache(s), nausea, rash, palpitations or vomiting Review of Systems Const: Denies: fever(s), chills or fatigue Eyes: Denies: change in vision or eye discomfort ENMT: Denies: throat pain, odynophagia, nasal discharge or nasal congestion Card: Denies: chest pain, palpitations, edema, swelling of feet/ankles, dyspnea on exertion or orthopnea Resp: Denies: dyspnea, productive cough or non-productive cough GI: Denies: abdominal pain, nausea, vomiting, diarrhea, constipation or hematochezia : Denies: flank pain, difficulty urinating, dysuria or hematuria Musc: Denies: neck pain, back pain or extremity swelling Skin/Breast: Reports: surgical incision (Bleeding from angiogram site on right wrist.); Denies: rash or new lesions Neuro: Denies: headache(s), numbness in extremities or weakness in extremities [facility] ED PFSH: Medical History Alcohol dependence, in remission Arthritis, multiple joint involvement Asthma Atherosclerotic heart disease of [place] coronary artery with other forms of angina pectoris Cardiac cath Done in [facility] in 2012- was told to have some blockages Benign essential hypertension with target blood pressure below 140/90 Chronic post-traumatic stress disorder (PTSD) COPD (chronic obstructive pulmonary disease) Hepatitis C Major depressive disorder, recurrent severe without psychotic features Mixed hyperlipidemia Surgical History History of coronary artery stent placement (2012) History of inguinal hernia repair (~2011) left groin History of laparoscopic cholecystectomy (~2012) Family History Brother Stroke Other Cancer Hypertension Denies family history of Anesthesia complication Bleeding disorder Social History Smoking and tobacco status: current every day smoker cigarettes Packs smoked per day: 1 Second hand smoke exposure: No Alcohol intake: former Year of sobriety/quit date alcohol: 1 Desire information about alcohol rehabilitation?: No Adopted: No Lives independently: Yes Household members: spouse Housing: House Marital status: Highest education level completed: High School Graduate service: No Current occupational status: unemployed Current occupational exposures/hazards: No Pets and animals: No History of recent travel: No Leisure activites: exercise Sexually active: Yes Current gender identity: Male Melida/Baptist: Sikh Special melida needs: No Agree to transfusion: No Financial difficulty paying for basics: Decline to Answer Physical Exam Const: COMMON NORMALS: no acute distress, patient oriented x3 and alert GENERAL APPEARANCE: cooperative and comfortable HENMT: COMMON NORMALS: normocephalic HEAD & SCALP: normocephalic MOUTH: Normal oral and palatal mucosa present THROAT: posterior oropharynx normal and uvula midline Neck/C-Spine: COMMON NORMALS: supple GENERAL: Yes normal visual inspection Resp: COMMON NORMALS: normal respiratory effort, No retractions, No use of accessory muscles and clear to auscultation bilaterally AUSCULTATION: clear to auscultation bilaterally Cardio: COMMON NORMALS: regular rate, regular rhythm, S1 normal heart sound present, S2 normal heart sound present, No gallops present (Cardio), No clicks present (Cardio), No murmurs present (Cardio) and Peripheral pulses 2+ throughout RATE: regular rate RHYTHM: regular rhythm HEART SOUNDS: S1 normal heart sound present and S2 normal heart sound present PERIPHERAL PULSES: Peripheral pulses 2+ throughout GI: COMMON NORMALS: Normal to inspection, nondistended, normoactive bowel sounds present, Soft to palpation, non-tender and no masses PALPATION: Yes Soft to palpation : COMMON NORMALS: Yes no CVA tenderness BLADDER/KIDNEY EXAM: Yes no CVA tenderness Back/Pelvis: COMMON NORMALS: no CVA tenderness Extremity: NARRATIVE EXTREMITY EXAM: Right forearm had some mild nonpitting edema. GENERAL: Yes normal exam except as noted Neuro: COMMON NORMALS: patient oriented x3 and moves all extremities SENSORIUM/ORIENTATION: Yes alert Skin: GENERAL SKIN EXAM: dry skin WOUNDS: Yes surgical site (Angios site on anterior aspect of right wrist?no erythema, warmth or active bleeding.) Course Vital Signs: Vital signs: Vital Signs Temperature 98.4 F 05/10/20 17:24 Pulse Rate 71 05/10/20 19:26 Respiratory Rate 16 05/10/20 19:26 Blood Pressure 118/77 05/10/20 19:26 Pulse Oximetry 94 05/10/20 19:26 MDM - General Adult MDM Narrative: Medical decision making narrative: Patient is a 50-year-old male comes to the ED with bleeding from angiogram site. Angiogram was performed earlier this morning and later this afternoon patient started having some bleeding. Bleeding resolved before arriving in the ED. Physical exam showed angiogram site with no active bleeding, erythema or warmth. Some mild swelling and right forearm. Ultrasound venous duplex of the right upper extremity showed no DVTs or blood clots. Patient was discharged with a new bandage placed over angiogram site. He was told to follow-up with at previously scheduled appointment next week. Return to ED precautions given. Patient understood and agreed with plan. Imaging Data^: US Vascular: Attestation: I personally reviewed and interpreted this imaging study as follows : Radiologist's impression: Ultrasound venous duplex of right upper extremity?prelim report showed no blood clots or DVTs seen. Discharge Plan Discharge Patient Disposition: Home Clinical Impression: Bleeding at insertion site Condition: Stable Prescriptions: No Action buspirone 30 mg tablet 30 mg PO BID Qty: 60 RF: 3 Viibryd 40 mg tablet 40 mg PO DAILY Qty: 30 RF: 3 nitroglycerin [Nitrostat] 0.4 mg tablet, sublingual 0.4 mg SUBLINGUAL Q5M PRN (Reason: Chest Pain) RF: 0 rosuvastatin [Crestor] 5 mg tablet 5 mg PO DAILY RF: 0 Symbicort 160-4.5 mcg/actuation HFA aerosol inhaler 2 puff INHALATION BID RF: 0 albuterol sulfate 90 mcg/actuation HFA aerosol inhaler 2 puff INHALATION Q6H PRN (Reason: Shortness Of Breath) 30 Days Qty: 18 RF: 5 metoprolol succinate 25 mg tablet extended release 24 hr 25 mg PO DAILY Qty: 30 RF: 3 isosorbide mononitrate 30 mg tablet extended release 24 hr 30 mg PO QAM Qty: 90 RF: 3 meloxicam 15 mg tablet 15 mg PO DAILY RF: 0 Discharge Orders: Discharge Order (Routine); Ordered 05/10/20 Ordered By: Shade Hanley Referrals: Sharon Cespedes MD [Primary Care Provider] - Discharge Diet: Regular Discharge Activity: Limit activity as instructed Activity Restrictions/Additional Instructions: Follow-up with medical provider as directed at your next scheduled follow-up appointment. continue taking all home meds. Limit activity as discussed per postop discharge from angiogram. Return to the ER or your medical provider if condition worsens. Remember and apply pressure to help control bleeding if bleeding reoccurs. Please read and understand discharge instructions. If any questions, please ask. Discharge Date/Time: 05/10/20 19:32 Coding Level of Care Code ED Innersole Fitter for January Fwjoselin Exam Comprehensive
--- NOTE | 2020-05-10 17:47 | USCV_ITS ---
Edgar Enriquez Age: 50 Gender: M : 1970 Exam Date: 05/10/2020 18:50 Ordering Phys: Shade Hanley Technologist: Nora Stacy Exam Location: [facility] [place] Indication: Right arm swelling and pain HISTORY: Upper extremity pain and swelling. PROCEDURES: Venous duplex imaging was performed in only the right upper extremity. The following venous structures were evaluated: internal jugular vein, subclavian vein, axillary vein, and brachial veins. In addition, the basilic vein, cephalic vein, radial vein, and ulnar vein. FINDINGS: Normal 2-D, color Doppler and phasicity noted in ther right upper extremity venous system extending from the right internal jugular vein through the main forearm. No thrombosis or occlusion noted. CONCLUSIONS No evidence for upper extremity deep venous thrombosis. Dr. Julia Grant DO (Electronically Signed) Final Date: 11 May 2020 14:07 S
--- NOTE | 2020-05-10 18:06 | PC.NURSE ---
Patient reports having an angiogram this am. No complications at that time. 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 Bleeding has since been controlled. New dressing applied. Patient denies any further symptoms. Patient is AAOx4. NAD noted. Dressing is clean and dry.
[2020-05-10] MEDS: acetaminophen 325 mg Tablet 650 MG PO (19:24)
[2020-05-10 19:26] VITALS: BP 118/77; PULSE 71; RESP 16; O2SAT 94
== END 2020-05-10 19:32 | disposition home or self-care (01) ==
PROVIDERS: Emergency Provider Physician Assistant; PCP Family Medicine
DX: I97.618 Postprocedural hemorrhage of a circulatory system organ or structure following other circulatory system procedure (principal); I10 Essential (primary) hypertension; J44.9 Chronic obstructive pulmonary disease, unspecified; Z86.19 Personal history of other infectious and parasitic diseases; E78.2 Mixed hyperlipidemia; F17.210 Nicotine dependence, cigarettes, uncomplicated
CPT/HCPCS: 12345; 93971; 99281; 99283

== ENCOUNTER → 2020-05-17 11:49 | Outpatient (BNVA) | payer MEDICAID, SELFPAY | PROVIDERS: PCP Family Medicine; Visit Provider Nurse Practitioner Family | DX: I25.118 Atherosclerotic heart disease of native coronary artery with other forms of angina pectoris (principal) | CPT/HCPCS: 80048 ==

== ENCOUNTER → 2020-07-28 10:45 | Outpatient (BNVA) | payer MEDICAID, SELFPAY | PROVIDERS: PCP Family Medicine; Visit Provider Family Medicine | DX: D72.829 Elevated white blood cell count, unspecified (principal); J41.0 Simple chronic bronchitis; Z72.0 Tobacco use; I25.118 Atherosclerotic heart disease of native coronary artery with other forms of angina pectoris; E78.2 Mixed hyperlipidemia; M12.9 Arthropathy, unspecified; I10 Essential (primary) hypertension | CPT/HCPCS: 85007; 85027 ==